=== PATIENT | female | born 1985 | race Caucasian/White ===

== ENCOUNTER 2018-03-24 18:47 | Emergency (ER) | payer MEDICAID ==
[~2018-03-24] VITALS: Ht 162.6 cm; Wt 94.5 kg
[2018-03-24 18:52] VITALS: Ht 162.6 cm; Wt 94.5 kg
[2018-03-24 19:11] LABS: BASOPHILS 0.1 % (0-2); EOSINOPHILS 0.5 % (0-7); HEMATOCRIT 41.9 % (36.0-48.0); HEMOGLOBIN 14.4 g/dL (12-16); IMMATURE GRANULOCYTES 0.1 % (0-5); LYMPHOCYTES 37.4 % (15-50); MCHC 34.4 g/dL (31.0-37.0); MCV 87.3 fL (80.0-100.0); MEAN PLATELET VOLUME 9.5 fL (7.4-10.4); MONOCYTES 9.8 % (2-11); NEUTROPHILS 52.1 % (40-80); PLATELET COUNT 324 10x3/uL (130-400); RDW 12.7 % (11.5-14.5); WBC 8.3 10x3/uL (4.8-10.8)
[2018-03-24 19:24] LABS: ALBUMIN 3.7 g/dL (3.4-5.0); ANION GAP 13.4 mmol/L (8-16); BILIRUBIN - TOTAL 0.31 mg/dL (0.2-1.3); CALCIUM 8.4 mg/dL (8.5-10.1); CARBON DIOXIDE 26.8 mmol/L (21.0-32.0); CREATININE - SERUM 1.1 mg/dL (0.6-1.3); POTASSIUM - SERUM 3.2 mmol/L (3.5-5.1); PROTEIN - SERUM 7.7 g/dL (6.4-8.2)
[2018-03-24 19:36] LABS: APPEARANCE CLEAR (CLEAR); BACTERIA MODERATE /hpf (NONE SEEN); BILIRUBIN NEGATIVE (NEGATIVE); COLOR YELLOW (YELLOW); EPITHELIAL CELLS 0-5 /hpf (0-5); GLUCOSE NEGATIVE (NEGATIVE); KETONE NEGATIVE (NEGATIVE); NITRITE NEGATIVE (NEGATIVE); PROTEIN NEGATIVE (NEGATIVE); RED CELLS - URINE 0-5 /hpf (0-5); SPECIFIC GRAVITY 1.015 (1.005-1.020); UROBILINOGEN NORMAL (NORMAL); WHITE CELLS - URINE 0-5 /hpf (0-5)
[2018-03-24] MEDS ORDERED: ADIPEX-P37.5 MG (19:36)
[2018-03-24 19:37] LABS: HCG URINE NEGATIVE (NEGATIVE)
[2018-03-24 20:08] LABS: AMYLASE - SERUM 31 U/L (25-115); LIPASE 87 U/L (73-393)
[2018-03-24 22:00] VITALS: BP 138/85
== END 2018-03-24 22:00 | disposition home or self-care (01) ==
LOC: D.ER 18:47
PROVIDERS: Emergency Medicine; Family Medicine
DX: K52.9 Noninfective gastroenteritis and colitis, unspecified (principal)

== ENCOUNTER → 2019-01-28 10:44 | Outpatient (CLI) | payer MEDICAID ==
[2018-03-24 18:52] VITALS: BMI 35.8
[~2019-01-28 10:44] MED LIST: ADIPEX-P37.5 MG
== END | disposition home or self-care (01) ==
LOC: D.RAD 10:44
PROVIDERS: ATTEND Nurse Practitioner Family
DX: M25.551 Pain in right hip (principal); M54.5 Low back pain

== ENCOUNTER 2019-09-03 02:01 | Emergency (ER) | payer MEDICAID ==
[~2019-09-03] VITALS: Ht 162.6 cm; Wt 100.0 kg
[2019-09-03 02:12] VITALS: Ht 162.6 cm; Wt 100.0 kg
[2019-09-03] MEDS ORDERED: MAXITROL EYE DRO5 ML EACH EYE (02:14)
[2019-09-03] MEDS ORDERED: OCUFLOX 0.3 % OP5 ML LEFT EYE (03:00)
[2019-09-03] MEDS ORDERED: ULTRAM50 MG PO (03:02)
[2019-09-03 03:21] VITALS: BP 145/94
== END 2019-09-03 03:21 | disposition home or self-care (01) ==
LOC: D.ER 02:01
DX: H18.822 Corneal disorder due to contact lens, left eye (principal)

== ENCOUNTER 2020-04-23 01:30 | Emergency (ER) | payer MEDICAID ==
[~2020-04-23] VITALS: Ht 162.6 cm; Wt 97.7 kg
[~2020-04-23 01:30] MED LIST changes: +MAXITROL EYE DRO5 ML EACH EYE; +OCUFLOX 0.3 % OP5 ML LEFT EYE; +ULTRAM50 MG PO
[2020-04-23 01:32] VITALS: Ht 162.6 cm; Wt 97.7 kg
[2020-04-23 03:53] VITALS: BP 136/87
== END 2020-04-23 03:43 | disposition home or self-care (01) ==
LOC: D.ER 01:30
DX: M54.6 Pain in thoracic spine (principal)